=== PATIENT | male | born 1970 | race Caucasian/White ===

== ENCOUNTER 2016-06-21 13:05 | Emergency (ER) | payer OTHER ==
[~2016-06-21] VITALS: Ht 167.6 cm; Wt 120.0 kg
[2016-06-21 13:27] VITALS: BP 145/89; PULSE 62; RESP 16; O2SAT 96
[2016-06-21] MEDS ORDERED: 0.9% Sodium Chloride 1,000 ML IV ONE (14:50)
[2016-06-21] MEDS ORDERED: Ondansetron 2 mg/mL 2 mL Inj IVPUSH ONE (14:50)
[2016-06-21] MEDS ORDERED: Ketorolac 30 mg/mL 2 mL Inj IM ONE (14:50)
[2016-06-21 15:05] LABS: BASOPHILS % (AUTO) 0.4 % (0-3); EOSINOPHILS % (AUTO) 3.4 % (0-5); Mean Corpuscular Hemoglobin 30.6 pg (27.0-35.0); NEUTROPHILS % (AUTO) 52.7 % (40-74); Platelet Count 353 bil/L (150-400)
--- NOTE | 2016-06-21 15:15 | ED.REPORT ---
HPI-Headache Date of Service Jun 21, 2016 ED Provider: Leopoldo Rivas PA-C Nick is a 46-year-old male with a history of hypertension, type II diabetes who is brought in by EMS after syncopal episode.. He reports being newly diagnosed with migraine headaches approximately 10 days ago by his primary care provider and prescribed Imitrex and Reglan. Headache has waxed and waned since then but never completely resolved. He does not find his medications helpful. He has had perhaps 4 episodes of severe pain lasting as long as 48 hours each. His current episode began about 14 hours ago and he rates the pain an 8 out of 10. The pain is located in the occipital region. He complains of occasional blurred vision and light sensitivity when headache is quite bad. He states that today at work he had been feeling lightheaded for approximately 1 hour, and then regained consciousness on the floor. His coworkers tell him he passed out briefly. He denies hitting his head. He denies other symptoms including fever and vertigo. Nursing Notes Stated Complaint: MIGRAINE Chief Complaint: Headache Nursing Notes Reviewed: Yes Allergies: Coded Allergies: No Known Allergies (Unverified Allergy, Unknown, 06/21/16) General Time Seen by MD: 13:32 Chief Complaint Headache Sudden in Onset?: No Past Medical History Past Medical History Hypertension, DM 2, asthma, RAJAT, neuropathy Review of Systems General: Denies fever, chills, malaise. HEENT: Admits headache. Denies congestion, sore throat. Respiratory: Denies dyspnea, cough, shortness of breath, wheezing. Cardiovascular: Denies chest pain, palpitations. Gastrointestinal: Denies vomiting, diarrhea, abdominal pain. Otherwise as noted in HPI. Physical Exam General: Well appearing, well developed, well nourished, no acute distress. Head: Atraumatic, normocephalic. No mastoid tenderness. Eyes: No scleral icterus or injection. No discharge. PERRL. Vision grossly intact. Ears: Pinna and tragus nontender with manipulation. External auditory canal patent, atraumatic and without discharge. Tympanic membrane acosta, shiny and translucent without fluid, bulging, retraction or perforation. Hearing grossly intact. Nose: Symmetrical, nares patent without discharge. No frontal or maxillary sinus tenderness. Mouth/pharynx: normal dentition, mucus membranes moist. Tonsils 2+ and symmetrical, uvula midline. Pharynx noninjected, no cobblestoning or discharge. Voice clear. Neck: Mild tenderness near C2. Full range of motion. Pain is aggravated slightly by flexion. Respiratory: Regular rate and rhythm. Breath sounds present, clear to auscultation and equal bilaterally. No respiratory distress. No increased work of breathing, speaks in complete sentences. Cardiovascular: Regular rate and rhythm, without murmur, gallop or rub. No pedal edema. Gastrointestinal: Abdomen flat and non-tender without guarding or rebound. Bowel sounds normoactive. Skin: Warm and dry. Neurological: Normal gait, normal rapid hand, normal finger-nose. Strength and sensation grossly intact in extremities Cranial nerves: Vision grossly intact, PERRL, double vision with EOMI. Facial motion symmetrical, sensation to light touch over forehead, maxilla and mandible present and equal B/L. Voice clear and fluent, no drooling/pooling of saliva, uvula rises midline. Psychological: Alert and oriented x3. Speech appropriate, linear and logical. Behavior appropriate. Initial Vital Signs Vital Signs (First) Date Time Temp Pulse Resp B/P Pulse Ox O2 Delivery O2 Flow Rate FiO2 06/21/16 13:27 36.4 62 16 145/89 96 06/21/16 18:00 Room Air Initial VS: Reviewed, Vital signs normal Interpretation & Diagnostics Lab Results Interpretation Result Diagram: 06/21/16 1320 06/21/16 1320 Test 06/21/16 13:20 06/21/16 19:25 White Blood Count 8.5th/mm3 (3.8-10.1) Red Blood Count 4.51mil/mm3 (4.40-5.80) Hemoglobin 13.8g/dL (13.8-17.2) Hematocrit 41.5% (41.0-50.0) Mean Corpuscular Volume 92.0fL (81-100) Mean Corpuscular Hemoglobin 30.6pg (27.0-35.0) Mean Corpuscular Hemoglobin Concent 33.3% (32.0-37.0) Red Cell Distribution Width 11.7% (12.3-15.4) Platelet Count 353bil/L (150-400) Neutrophils (%) (Auto) 52.7% (40-74) Lymphocytes (%) (Auto) 31.4% (14-46) Monocytes (%) (Auto) 12.0% (4-12) Eosinophils (%) (Auto) 3.4% (0-5) Basophils (%) (Auto) 0.4% (0-3) Hold Purple Top Tube Received (Received) Hold Blue Top Tube Received (Received) Sodium Level 139mEq/L (134-144) Potassium Level 4.4mEq/L (3.5-5.2) Chloride Level 100mEq/L (97-108) Carbon Dioxide Level 27mmol/L (18-29) Blood Urea Nitrogen 17mg/dL (6-24) Creatinine 0.88mg/dL (0.76-1.27) Estimat Glomerular Filtration Rate 99mL/min (>59) Glucose Level 101mg/dL (60-99) Calcium Level 9.4mg/dL (8.5-10.1) Total Bilirubin 0.3mg/dL (0.0-1.2) Aspartate Amino Transf (AST/SGOT) 22U/L (0-50) Alanine Aminotransferase (ALT/SGPT) 21U/L (0-44) Alkaline Phosphatase 66U/L (25-150) Total Protein 7.3g/dL (6.4-8.4) Albumin 4.1g/dL (3.4-5.0) Hold Red Top Tube Received (Received) Hold [place] Top Tube Received (Received) CSF Appearance Clear (CLEAR) CSF Color Colorless (COLORLESS) CSF WBC 0/mm3 (0-5) CSF RBC 0/mm3 CSF Mononuclear WBCs % CSF Polynuclear WBCs % CSF Other Cells CSF Glucose 85mg/dL (45-90) CSF Total Protein 27mg/dL (15-45) Lumbar Puncture Interpretation CSF normal, Gram stain normal, Opening pressure normal CT Head Interpretation PROCEDURE: CT BRAIN WITHOUT CONTRAST ([id number]) INDICATIONS: headache IMPRESSION: No acute intracranial process Procedures Lumbar Puncture Time: 19:02 Procedure Performed by: ED physician (Dr. Alli Kumar D.O.) Consent / Setup / Site Prep: Informed consent provided, Consent from patient , Time-out performed, Hand hygiene observed, Stand sterile technique, Sterile drapes applied, Patient left lateral Skin Preparation Agent: Hibiclens - Chlorhexidine, Betadine Local Anesthesia: Lidocaine 1% LP Needle Gauge: 22 Inserted Needle at: L3 L4 Post-Procedure / Complications: Antibiotic oint applied, Dressing applied, No complications, Tolerated procedure well, Patient stable Re-Eval/Medical Decision Med Decision/Clinical Course 46-year-old male with a history of hypertension diabetes brought in by EMS for a syncopal episode at work associated with a persistent headache over the last 10 days. History is initially concerning for brain tumor, meningitis, hemorrhage or hematoma. However physical exam reveals no neurological deficits, CT scan is normal and lumbar puncture is clear. I discussed case with Dr. Kumar who met and examined the patient We will give ruled out dangerous causes of headache. The patient responded well to therapy in the department including Tylenol, ketorolac, ondansetron, Benadryl, normal saline. He states his headache is completely resolved and is eager to be discharged. Advised primary care follow-up, provided return precautions. Re-Evaluation/Progress : Time of Eval: 16:52 Re-Evaluation/Progress Note: Patient states his pain is completely resolved he is sitting up comfortably and having a snack. We discussed his negative CT results. Discharge & Departure Impression: Primary Impression: Headache Headache type: unspecified Headache chronicity pattern: acute headache Intractability: not intractable Qualified Code: R51 - Headache Disposition: Home Discharge Condition All VS Reviewed: Yes Condition: Stable Patient Instructions: Acute Headache (ED) Additional Instructions: Evaluation in emergency department for a syncopal episode associated with a headache. CT scan of your brain and a lumbar puncture are both reassuring that this is unlikely because by dangerous condition. You responded well to therapy in the emergency Department with total resolution of your headache. I believe he is stable and safe for discharge home. Please follow-up with your primary care provider if your headaches continue. Return to emergency department for any new or worsening symptoms including a different severe headache, loss of consciousness, or neurological symptoms. Referrals: Vicenta Miller MD (PCP) EDSupervising Provider for APC: Alli Kumar DO copies to: Vicenta Miller MD, Seth PA-C Jun 21, 2016 15:15 REAL SÁNCHEZ Jun 21, 2016 19:19 Alli Kumar DO Jun 22, 2016 18:46
--- NOTE | 2016-06-21 15:44 | DRSVH ---
PROCEDURE: CT BRAIN WITHOUT CONTRAST ([id number]) INDICATIONS: headache TECHNIQUE: Noncontrast 4.5 mm thick angled axial sections acquired from the foramen magnum to the vertex, with c oronal reformats. COMPARISON: [facility], CT, BRAIN W/O CONTRAST, 07/11/2007, 5:47. FINDINGS: Image quality: Excellent. CSF spaces: Basal cisterns are patent. No extra-axial fluid collections. Ventricles are normal in size and shape. Brain: No midline shift. No intracranial masses or hemorrhage. [place]-white matter interface is norm al. Skull and face: Calvarium and visualized facial bones are intact, without suspicious lesions. Sinuses: Visualized sinuses and mastoids are clear. IMPRESSION: No acute intracranial process Dictated by: Yon Perry M.D. on 06/21/2016 at 15:40 Approved by: Yon Perry M.D. on 06/21/2016 at 15:42
[2016-06-21 18:00] VITALS: BP 140/82; PULSE 66; RESP 16; O2SAT 97
[2016-06-21 20:33] LABS: APPEARANCE,CSF CLEAR (CLEAR); COLOR,CSF COLORLESS (COLORLESS); WHITE BLOOD CELL,CSF 0 /mm3 (0-5)
[2016-06-21 21:16] VITALS: BP 119/84; PULSE 62; RESP 16; O2SAT 97
== END 2016-06-21 21:17 | disposition home or self-care (01) ==
LOC: SED 13:05 → EDBD 13:05 → EDUNIT# 13:05 → SED 21:17
DX: R51 Headache (principal); E11.42 Type 2 diabetes mellitus with diabetic polyneuropathy; I10 Essential (primary) hypertension
CPT/HCPCS: 36415; 62270; 70450; 80053; 82945; 84155; 85025; 87070; 87205; 89051; 96374; 96375; 99285; J1200; J2405; J7030